=== PATIENT | male | born 1965 | race Caucasian/White ===

== ENCOUNTER 2020-10-04 21:23 | Inpatient (IN) ==
[2020-10-04 22:17] LABS: Appearance Urine Clear (Clear); Blood Urine 3+ (Negative); Color Urine Orange; Epithelial Cell Urine Auto >30 /lpf (0-5); Glucose Urine UA Negative (Negative); Ketones Urine Trace (Negative); Leukocyte Esterase Urine Trace (Negative); Nitrite Urine Positive (Negative); Protein Urine Trace (Negative); RBC Urine Automated >30 /hpf (0-4); Specific Gravity Urine 1.025 (1.000-1.030); Urobilinogen Urine Negative (Negative)
[2020-10-04 22:23] LABS: Bilirubin Urine 2+ (Negative)
[2020-10-04 22:29] LABS: Bacteria Urine Automated 1+ (Negative); Mucus Urine Present (None Prsent)
--- NOTE | 2020-10-04 22:33 | Emergency Department Note ---
Impression & Plan Altered mental status, Alcohol-induced hallucinations, Alcohol abuse, Psychosis, Thrombocytopenia, Urinary tract infection, Rhabdomyolysis ED Provider Note NAME: LUIS FELIPE WYNN AGE: 55 SEX: M : 1965 ARRIVES VIA: Walk-In INFORMANT: Patient, the patient's family member ED PROVIDER(S): Ron Gonzalez DO CHIEF COMPLAINT: Mental health evaluation HPI: The patient is a 55-year-old male who presented to the emergency department with his family member for an evaluation of mental health issues. The patient has had problems with paranoia. He is also had problems with sleeping recently. The patient does not have a previous mental health history. He does have a history of alcohol abuse in the past. He had a history of detox and at that time his family member states that he had hallucinations. Lately he has had significant mental health symptoms such as paranoia. He thinks that he has a tracker that was implanted in his left shoulder. He tried to remove this with a utility knife today. He came to the emergency department willingly although he thought he was being evaluated for the self-inflicted abrasion and not for his mental health issues. At this time the patient denies having any chest pain or difficulty breathing. He denies having any fever or cough. He has been experiencing GERD and reflux symptoms over the course the last few weeks. He states this is why he is not able to sleep and why he has had insomnia. He denies any con commitment drug use. ROS: See above HPI for pertinent positives & negatives. A total of 10 systems reviewed and were otherwise negative. PAST MEDICAL HISTORY: See Below PAST SURGICAL HISTORY: See Below FAMILY HISTORY: See Below SOCIAL HISTORY: See Below HOME MEDICATIONS: See Below ALLERGIES: See Below VITALS: See Below PHYSICAL EXAMINATION: GENERAL: The patient is awake and alert. He is somewhat anxious appearing and appears to be guarded. EYES: The conjunctivae are clear. The pupils are round and reactive. EARS, NOSE, MOUTH AND THROAT: The nose is without any evidence of any deformity. NECK: The neck is nontender and supple. RESPIRATORY: Normal respiratory effort is noted there is no evidence of wheezing rhonchi or rales CARDIOVASCULAR: Regular rate and rhythm noted there no murmurs rubs or gallops normal S1 normal S2. GASTROINTESTINAL: The abdomen is soft. Abdomen is nontender. MUSCULOSKELETAL/EXTREMITIES: There is no evidence of gross deformity full range of motion is noted in the hips and shoulders. SKIN: No pedal edema was noted. There is a brush burn-like abrasion to the left shoulder in the area where the patient remove the GPS tracking device. NEUROLOGIC: Patient is awake alert and oriented x3 strength is symmetric patellar reflexes are 2+ bilaterally PSYCH: The patient is awake and alert. The patient makes good eye contact. Patient's affect is animated. He is currently denying any suicidal homicidal ideation but is very paranoid and insists that he is being tracked with a GPS device. He also insisted he was seeing people in a tree outside of his window. MEDICAL DECISION MAKING: The patient is a 55-year-old male who presented to the emergency department with family member for an evaluation of hallucinations. The patient does have a history of alcohol abuse. The patient initially came in the emergency department with significant paranoid. He thought that he was being tracked with a GPS tracker that was implanted in his left arm. He is also been hallucinating and seeing people climbing a tree outside of his window. The patient was unable to be medically cleared in the emergency department. He was found to have multiple laboratory abnormalities including an elevated CPK, thrombocytopenia, abnormal liver function studies and abnormal vital signs. The patient was treated with IV fluids and IV antibiotics for presumed urinary tract infection. He was also treated with IV thiamine. I discussed the patient's laboratory and radiographic studies with him. I discussed his case with the on-call [facility] hospitalist. They have agreed to evaluate the patient in the emergency department for further management and disposition. Triage Nursing notes reviewed. Prior medical records reviewed Vital Signs: reviewed and remarkable for initial tachycardia. Differential diagnosis: Mood disorder, infection, hypoglycemia, electrolyte abnormalities, cardiac sources, intracerebral event, toxicologic, trauma, neurologic, as well as other pathologies. ER treatment provided: See below Diagnostics interpreted by me: ECG: EKG was obtained in the emergency department. My interpretation is sinus tachycardia at 160 bpm. There is no ectopy. There was no acute ST segment abnormalities noted. This was compared to a tracing from August 292010. No significant changes were noted. Laboratory studies: [As stated above and show below.] Imaging studies: [See below] Consultation(s): 0035: I discussed this case with Dr. Roth [facility]. Past Med/Surg History Medical History (Updated 10/05/20 @ 00:32 by Ron Gonzalez DO) Alcohol abuse History of pneumothorax Social History (Updated 10/05/20 @ 00:31 by Ron Gonzalez DO) Smoking Status: Never smoker Hx Alcohol Use: Yes Alcohol type: beer Alcohol Intake Frequency: 2-3 x/Week Feels Safe at Home: Yes Allergies Allergies Allergy/AdvReac Type Severity Reaction Status Date / Time No Known Allergies Allergy Verified 10/04/20 21:45 Home Meds Home Medications Medication Instructions Recorded Confirmed esomeprazole magnesium [Nexium] 20 mg PO DAILY PRN 10/04/20 10/04/20 fexofenadine-pseudoephedrine See Rx Instructions .ROUTE 10/04/20 10/04/20 [Zuleyma-D 12 Hour] .COMPLEX PRN Results & Data (ED) Vital Signs Vital Signs - 24 hr 10/04/20 21:29 10/04/20 22:53 10/05/20 00:28 Temperature 37.4 C Temperature Source Temporal Artery Scan Pulse Rate 128 H Pulse Rate [Finger] 112 H 105 H Respiratory Rate 18 18 18 Respiratory Effort / Characteristics Non-Labored Non-Labored Spontaneous Respiratory Depth Normal Normal Blood Pressure 133/90 Blood Pressure [Right Arm] 136/89 105/87 Blood Pressure Mean 104 Blood Pressure Mean [Right Arm] 104 93 Pulse Oximetry 95 98 97 Oxygen Delivery Method Room Air Room Air Room Air Sepsis Recent Fever Within 48 Hours No Sepsis New/Unexplained Change in Mental Status No Sepsis Action Taken by Nursing No Action Required Home Medications Current Medication List: was personally reviewed by me Laboratory Data Attestation: I reviewed the patient's lab results. Result diagrams: 10/04/20 22:09 10/04/20 22:09 Lab Results 10/04/20 10/04/20 10/04/20 Range/Units 21:40 21:40 22:09 WBC 5.89 (4.8-10.8) K/uL RBC 4.23 L (4.7-6.1) M/uL Hgb 14.7 (14.0-18.0) g/dL Hct 39.9 L (42-52) % MCV 94.3 (80-100) fL MCH 34.8 H (25-34) pg MCHC 36.8 H (32-36) g/dL RDW Std Deviation 44.4 (36.4-46.3) fL RDW Coeff of Kevin 12.8 (11.5-14.5) % Plt Count 36 L (130-400) K/uL MPV 11.2 H (7.4-10.4) fL Immature Gran % (Auto) 0.2 % Neut % (Auto) 51.5 % Lymph % (Auto) 30.4 % [place] % (Auto) 17.3 % Eos % (Auto) 0.3 % Baso % (Auto) 0.3 % Neut # (Auto) 3.03 (1.4-6.5) K/uL Lymph # (Auto) 1.79 (1.2-3.4) K/uL [place] # (Auto) 1.02 H (0.11-0.59) K/uL Eos # (Auto) 0.02 (0-0.5) K/uL Baso # (Auto) 0.02 (0-0.2) K/uL Immature Gran # (Auto) 0.01 (0.00-0.02) K/uL Platelet Estimate Decreased L (Normal) Sodium (136-145) mmol/L Potassium (3.5-5.1) mmol/L Chloride (98-107) mmol/L Carbon Dioxide (21-32) mmol/L Anion Gap (3-11) BUN (7-18) mg/dl Creatinine (0.6-1.4) mg/dl Est Cr Clr Drug Dosing ml/min Est GFR ( Amer) Est GFR (Non-Af Amer) BUN/Creatinine Ratio (10-20) Glucose (70-99) mg/dl Calcium (8.5-10.1) mg/dl Total Bilirubin (0.2-1) mg/dl Direct Bilirubin (0-0.2) mg/dl AST (15-37) U/L ALT (12-78) U/L Alkaline Phosphatase (45-117) U/L Total Creatine Kinase (39-308) U/L Troponin I (0-0.045) ng/ml Total Protein (6.4-8.2) gm/dl Albumin (3.4-5.0) gm/dl Globulin (2.5-4.0) gm/dl Albumin/Globulin Ratio (0.9-2) TSH (0.300-4.500) uIu/ml Urine Color [place] Urine Appearance Clear (Clear) Urine pH 6.0 (4.5-7.5) Ur Specific [place] 1.025 (1.000-1.030) Urine Protein Trace H (Negative) Urine Glucose (UA) Negative (Negative) Urine Ketones Trace H (Negative) Urine Blood 3+ H (Negative) Urine Nitrite Positive A (Negative) Urine Bilirubin 2+ H (Negative) Urine Urobilinogen Negative (Negative) Ur Leukocyte Esterase Trace H (Negative) Urine WBC (Auto) 5-10 H (0-5) /hpf Urine RBC (Auto) >30 H (0-4) /hpf U Hyaline Cast (Auto) 5-10 H (0-5) /lpf U Epithel Cells (Auto) >30 H (0-5) /lpf Urine Bacteria (Auto) 1+ H (Negative) Ur Renal Epithelial Cell Not Reportable Granular Casts 1-5 H (0) /lpf Urine Mucus Present A (None Prsent) Salicylates Urine Opiates Screen Neg (Neg) Ur Methadone, Qual Neg (Neg) Acetaminophen Urine Barbiturates Neg (Neg) Ur Phencyclidine (PCP) Neg (Neg) U Amphetamin/Meth Scrn Neg (Neg) MDMA (Ecstasy) Screen Pos H (Neg) U Benzodiazepines Scrn Neg (Neg) Ur Cocaine Metabolite Neg (Neg) U Marijuana (THC) Screen Pos H (Neg) Ethyl Alcohol mg/dL (0-3) mg/dl COVID-19 Eval Order SARS-CoV-2 (PCR) (Negative) Influenza Type A (PCR) (Neg) Influenza Type B (PCR) (Neg) RSV (RT-PCR) (Neg) 10/04/20 10/04/20 10/04/20 Range/Units 22:09 22:09 22:09 WBC (4.8-10.8) K/uL RBC (4.7-6.1) M/uL Hgb (14.0-18.0) g/dL Hct (42-52) % MCV (80-100) fL MCH (25-34) pg MCHC (32-36) g/dL RDW Std Deviation (36.4-46.3) fL RDW Coeff of Kevin (11.5-14.5) % Plt Count (130-400) K/uL MPV (7.4-10.4) fL Immature Gran % (Auto) % Neut % (Auto) % Lymph % (Auto) % [place] % (Auto) % Eos % (Auto) % Baso % (Auto) % Neut # (Auto) (1.4-6.5) K/uL Lymph # (Auto) (1.2-3.4) K/uL [place] # (Auto) (0.11-0.59) K/uL Eos # (Auto) (0-0.5) K/uL Baso # (Auto) (0-0.2) K/uL Immature Gran # (Auto) (0.00-0.02) K/uL Platelet Estimate (Normal) Sodium 133 L (136-145) mmol/L Potassium 3.4 L (3.5-5.1) mmol/L Chloride 98 (98-107) mmol/L Carbon Dioxide 25 (21-32) mmol/L Anion Gap 9.0 (3-11) BUN 13 (7-18) mg/dl Creatinine 0.80 (0.6-1.4) mg/dl Est Cr Clr Drug Dosing 103.9 ml/min Est GFR ( Amer) 118.2 Est GFR (Non-Af Amer) 102.0 BUN/Creatinine Ratio 16.7 (10-20) Glucose 105 H (70-99) mg/dl Calcium 9.6 (8.5-10.1) mg/dl Total Bilirubin 5.9 H (0.2-1) mg/dl Direct Bilirubin 2.6 H (0-0.2) mg/dl AST 218 H (15-37) U/L ALT 94 H (12-78) U/L Alkaline Phosphatase 141 H (45-117) U/L Total Creatine Kinase 2058 H (39-308) U/L Troponin I 0.029 (0-0.045) ng/ml Total Protein 7.9 (6.4-8.2) gm/dl Albumin 3.3 L (3.4-5.0) gm/dl Globulin 4.6 H (2.5-4.0) gm/dl Albumin/Globulin Ratio 0.7 L (0.9-2) TSH 3.080 (0.300-4.500) uIu/ml Urine Color Urine Appearance (Clear) Urine pH (4.5-7.5) Ur Specific [place] (1.000-1.030) Urine Protein (Negative) Urine Glucose (UA) (Negative) Urine Ketones (Negative) Urine Blood (Negative) Urine Nitrite (Negative) Urine Bilirubin (Negative) Urine Urobilinogen (Negative) Ur Leukocyte Esterase (Negative) Urine WBC (Auto) (0-5) /hpf Urine RBC (Auto) (0-4) /hpf U Hyaline Cast (Auto) (0-5) /lpf U Epithel Cells (Auto) (0-5) /lpf Urine Bacteria (Auto) (Negative) Ur Renal Epithelial Cell Granular Casts (0) /lpf Urine Mucus (None Prsent) Salicylates Cancelled Urine Opiates Screen (Neg) Ur Methadone, Qual (Neg) Acetaminophen Cancelled Urine Barbiturates (Neg) Ur Phencyclidine (PCP) (Neg) U Amphetamin/Meth Scrn (Neg) MDMA (Ecstasy) Screen (Neg) U Benzodiazepines Scrn (Neg) Ur Cocaine Metabolite (Neg) U Marijuana (THC) Screen (Neg) Ethyl Alcohol mg/dL 90.0 H (0-3) mg/dl COVID-19 Eval Order SARS-CoV-2 (PCR) (Negative) Influenza Type A (PCR) (Neg) Influenza Type B (PCR) (Neg) RSV (RT-PCR) (Neg) 10/04/20 10/04/20 Range/Units 22:34 22:34 WBC (4.8-10.8) K/uL RBC (4.7-6.1) M/uL Hgb (14.0-18.0) g/dL Hct (42-52) % MCV (80-100) fL MCH (25-34) pg MCHC (32-36) g/dL RDW Std Deviation (36.4-46.3) fL RDW Coeff of Kevin (11.5-14.5) % Plt Count (130-400) K/uL MPV (7.4-10.4) fL Immature Gran % (Auto) % Neut % (Auto) % Lymph % (Auto) % [place] % (Auto) % Eos % (Auto) % Baso % (Auto) % Neut # (Auto) (1.4-6.5) K/uL Lymph # (Auto) (1.2-3.4) K/uL [place] # (Auto) (0.11-0.59) K/uL Eos # (Auto) (0-0.5) K/uL Baso # (Auto) (0-0.2) K/uL Immature Gran # (Auto) (0.00-0.02) K/uL Platelet Estimate (Normal) Sodium (136-145) mmol/L Potassium (3.5-5.1) mmol/L Chloride (98-107) mmol/L Carbon Dioxide (21-32) mmol/L Anion Gap (3-11) BUN (7-18) mg/dl Creatinine (0.6-1.4) mg/dl Est Cr Clr Drug Dosing ml/min Est GFR ( Amer) Est GFR (Non-Af Amer) BUN/Creatinine Ratio (10-20) Glucose (70-99) mg/dl Calcium (8.5-10.1) mg/dl Total Bilirubin (0.2-1) mg/dl Direct Bilirubin (0-0.2) mg/dl AST (15-37) U/L ALT (12-78) U/L Alkaline Phosphatase (45-117) U/L Total Creatine Kinase (39-308) U/L Troponin I (0-0.045) ng/ml Total Protein (6.4-8.2) gm/dl Albumin (3.4-5.0) gm/dl Globulin (2.5-4.0) gm/dl Albumin/Globulin Ratio (0.9-2) TSH (0.300-4.500) uIu/ml Urine Color Urine Appearance (Clear) Urine pH (4.5-7.5) Ur Specific [place] (1.000-1.030) Urine Protein (Negative) Urine Glucose (UA) (Negative) Urine Ketones (Negative) Urine Blood (Negative) Urine Nitrite (Negative) Urine Bilirubin (Negative) Urine Urobilinogen (Negative) Ur Leukocyte Esterase (Negative) Urine WBC (Auto) (0-5) /hpf Urine RBC (Auto) (0-4) /hpf U Hyaline Cast (Auto) (0-5) /lpf U Epithel Cells (Auto) (0-5) /lpf Urine Bacteria (Auto) (Negative) Ur Renal Epithelial Cell Granular Casts (0) /lpf Urine Mucus (None Prsent) Salicylates Urine Opiates Screen (Neg) Ur Methadone, Qual (Neg) Acetaminophen Urine Barbiturates (Neg) Ur Phencyclidine (PCP) (Neg) U Amphetamin/Meth Scrn (Neg) MDMA (Ecstasy) Screen (Neg) U Benzodiazepines Scrn (Neg) Ur Cocaine Metabolite (Neg) U Marijuana (THC) Screen (Neg) Ethyl Alcohol mg/dL (0-3) mg/dl COVID-19 Eval Order [facility]sv at [facility] SARS-CoV-2 (PCR) NEGATIVE (Negative) Influenza Type A (PCR) Negative (Neg) Influenza Type B (PCR) Negative (Neg) RSV (RT-PCR) Negative (Neg) Administered Medications Sodium Chloride (Nss 1000ml) 1,000 mls @ 80 mls/hr IV .[id number] Stop: 11/03/20 23:14 Last Infusion: 10/05/20 00:27 Dose: 0 mls/hr Documented by: [id number] Admin: 10/04/20 23:36 Dose: 1,000 mls/hr Documented by: [id number] Discontinued Medications Ceftriaxone Sodium (Rocephin) 1,000 mg in 50 mls @ 100 mls/hr IV NOW STA Stop: 10/04/20 23:36 Last Infusion: 10/05/20 00:06 Dose: 0 mls/hr Documented by: [id number] Admin: 10/04/20 23:36 Dose: 100 mls/hr Documented by: [id number] Imaging Data Attestation: I personally reviewed and interpreted this imaging study as follows: My Impression: 1 view chest x-ray was obtained in the emergency department. My interpretation is hyperinflation, heart size is normal, there was no free air, there is no definite infiltrate appreciated. Radiologist's Impression: Patient: LUIS FELIPE WYNN (Male) : 69 Status: ER Date: 10/05/20 00:01 Room #: History: AMS Slices: 66 Priors: Tech: Jonel Montiel @ [phone] Exams: CT HEAD Contrast: Accession Numbers: [id number] Preliminary Findings Only See Final Report For Complete Findings CT HEAD: No acute intracranial hemorrhage, hydrocephalus, edema, mass effect, or acute cortical infarct. Paranasal sinuses and mastoid air cells are clear. No fracture. Radiologist: Arcadio Schulz MD Study ready at 00:04 and initial results transmitted at 00:18 Discharge Plan Visit Data Chief Complaint: Mental Health Evaluation Stated Complaint: MENTAL HEALTH EVAL ED Provider: Ron Gonzalez Discharge Problem: Altered mental status, Alcohol-induced hallucinations, Alcohol abuse, Psychosis, Thrombocytopenia, Urinary tract infection, Rhabdomyolysis Patient Disposition: Being Evaluated by Hospitalist Condition: Good Forms Stand Alone Forms: [facility], Suicide Prevention Resources, Virtual Emergency Department, Important Visit Information Prescriptions Prescriptions: No Action fexofenadine-pseudoephedrine [Zuleyma-D 12 Hour] 60-120 mg Tablet Extended Release 12 Hr See Rx Instructions .ROUTE .COMPLEX PRN (Reason: Allergy Symptoms) RF: 0 esomeprazole magnesium [Nexium] 20 mg Capsule,Delayed Release(Dr/Ec) 20 mg PO DAILY PRN (Reason: Abdominal Discomfort) RF: 0 Referrals Referrals: PCP,NO [Primary Care Provider] - Discharge Problem: Altered mental status Qualifiers: Altered mental status type: unspecified Qualified Code(s): R41.82 - Altered mental status, unspecified Psychosis Qualifiers: Psychosis type: unspecified psychosis type Qualified Code(s): F29 - Unspecified psychosis not due to a substance or known physiological condition Urinary tract infection Qualifiers: Urinary tract infection type: site unspecified Hematuria presence: with hematuria Qualified Code(s): N39.0 - Urinary tract infection, site not specified Rhabdomyolysis Qualifiers: Rhabdomyolysis type: non-traumatic Qualified Code(s): M62.82 - Rhabdomyolysis
[2020-10-04 22:50] LABS: Albumin Level 3.3 gm/dl (3.4-5.0); BUN Creatinine Ratio 16.7 (10-20); Calcium 9.6 mg/dl (8.5-10.1); Creatinine Clr Calc Pharmacy 103.9 ml/min; Est GFR (African American) 118.2; Potassium 3.4 mmol/L (3.5-5.1)
[2020-10-04 22:55] LABS: Albumin Globulin Ratio 0.7 (0.9-2); Bilirubin,Total 5.9 mg/dl (0.2-1); Globulin 4.6 gm/dl (2.5-4.0); Total Protein 7.9 gm/dl (6.4-8.2)
[2020-10-04 22:59] LABS: Amphetamines+Metham, Urine Neg (Neg); Barbiturates, Urine Neg (Neg); Benzodiazepine, Urine Neg (Neg); Cocaine, Urine Neg (Neg); MDMA (Ecstacy), Urine Pos (Neg); Methadone, Urine Neg (Neg); Opiate, Urine Neg (Neg); Phencyclidine, Urine Neg (Neg)
[2020-10-04] MEDS ORDERED: cefTRIAXone SODIUM 1,000 MG/50 ML BAG IV STA (23:07)
[2020-10-04 23:15] LABS: Thyroid Stimulating Hormone 3.08 uIu/ml (0.300-4.500); Troponin I 0.029 ng/ml (0-0.045)
[2020-10-04] MEDS ORDERED: SODIUM CHLORIDE 0.9% 1000ML 1,000 ML IV SCH (23:15)
[2020-10-04 23:25] LABS: Influenza A virus by PCR Negative (Neg); Influenza B virus by PCR Negative (Neg); RSV by PCR Negative (Neg); SARS CoV2 RNA(COVID-19) InHosp NEGATIVE (Negative)
[2020-10-04 23:34] LABS: Hematocrit (blood only) 39.9 % (42-52); Hemoglobin 14.7 g/dL (14.0-18.0); Mean Corpuscular Hemoglobin 34.8 pg (25-34); Mean Corpuscular Hgb Conc 36.8 g/dL (32-36); Mean Corpuscular Volume 94.3 fL (80-100); Mean Platelet Volume 11.2 fL (7.4-10.4); Platelet Count 36 K/uL (130-400); RDW Coefficient of Variation 12.8 % (11.5-14.5); RDW Standard Deviation 44.4 fL (36.4-46.3); Red Blood Count 4.23 M/uL (4.7-6.1); White Blood Count 5.89 K/uL (4.8-10.8)
[2020-10-04 23:35] LABS: Basophils # (auto) 0.02 K/uL (0-0.2); Basophils % (auto) 0.3 %; Eosinophils # (auto) 0.02 K/uL (0-0.5); Eosinophils % (auto) 0.3 %; Immature Granulocytes # (auto) 0.01 K/uL (0.00-0.02); Immature Granulocytes % (auto) 0.2 %; Lymphocytes # (auto) 1.79 K/uL (1.2-3.4); Lymphocytes % (auto) 30.4 %; Monocytes # (auto) 1.02 K/uL (0.11-0.59); Monocytes % (auto) 17.3 %; Neutrophils # (auto) 3.03 K/uL (1.4-6.5); Neutrophils % (auto) 51.5 %; Platelet Estimate Decreased (Normal)
[2020-10-05] MEDS ORDERED: THIAMINE HCL 100 MG in SYRINGE 9 ML IV STA (00:32)
[2020-10-05 00:36] LABS: Bilirubin Direct 2.6 mg/dl (0-0.2)
[2020-10-05 00:51] LABS: INR 1.5 (0.9-1.1); Partial Thromboplastin Ratio 1.2; Partial Thromboplastin Time 30.9 Seconds (21.0-31.0); Prothrombin Time 15.1 Seconds (9.0-12.0)
--- NOTE | 2020-10-05 01:56 | History & Physical Report ---
Date of Service October 05, 2020 Assessment & Plan (1) Altered mental status: Patient AA&O to person and location. He answers questions appropriately and follows commands. He denies AH/VH, denies SI/HI. 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 Patient attempted to remove microchip today. No prior hisory of mental illness. ?EtOH withdrawal as underlying cause. Patient also with UTI, ?encephalopathy. Mild hyponatremia, electrolytes otherwise WNL. TSH WNL. CT Head unremarkable -Admit to PCU -Frequent orientation -Treatment of EtOH withdrawal and UTI -Check ammonia Present on Admission?: Yes (2) Rhabdomyolysis: Elevated CPK, renal function intact -IVF - NSS at 100mL/hr x 1 liter -Repeat CK in AM 10/06/20 Present on Admission?: Yes (3) Alcohol abuse: Patient has had several hospital visits for EtOH withdrawal. He has had confusion and hallucinations in the past in setting of EtOH withdrawal. He was evaluated by Psychiatry during a prior hospitalization in 2010. Addiction counseling offered and refused. He reports only drinking beer 2-3 times per week. Reports his last drink was appx 1 week ago. Although patient's EtOH level elevated today at 90 which makes this unlikely -Valium 5mg po x 1 now -Banana bag -AWSS with IV Ativan per protocol -Thiamine 100mg po daily -Folate 1mg po daily -Psychiatry consultation appreciated Present on Admission?: Yes (4) Urinary tract infection: Patient with positive UA. No urinary complaints -Ceftriaxone 1gm IV daily -Follow cultures Present on Admission?: Yes (5) Liver dysfunction: Patient was evaluated by GI in 2010 for evaluation of elevated liver enzymes. ELOISA, AMA, ASMA, S-pep, TTG, IgA, ceruloplasmin (normal at 29), TSH (normal at 2.05), Ferritin (elevated at 929), TIBC (normal at 328), Monospot (Positive), CMV (+IgG) and hepatitis panel were sent. During that hospitalization he had elevation of AST and ALT as well as mild elevation of Tbili. Coag panel seemed to remain within normal range. Today patient with elevated AST, ALT as well as AP, Tbili and Dbili. INR mildly elevated at 1.5 as well as PT of 15. Thrombocytopenia and low albumin raise concern for synthetic dysfunction -Check liver US with doppler -Check Acetaminophen level (patient denies using), Ferritin, Acute hepatitis panel, Ammonia -Repeat LFTs in AM -Patient is still an active drinker F/E/N - NSS at 100mL/hr x 1 liter, monitor electroltyes, Regular diet as tolerated Code - Full History of Present Illness Chief Complaint: EtOH withdrawal Primary Care Provider: NO PCP Guy Amin is a 55yo male with history of chronic EtOH use presenting with concern for mental health issues. Patient presented to the ER with his mother. He is unable to fully recount the events preceding arrival. History obtained through discussion with ER staff as well as chart review. Patient has had problems with paranoia and sleeping recently. He thinks that he has several microchip trackers that have been implanted in his left arm. Today he used a stainless steel utility knife to extract one of the trackers from his arm. He denies previous history of mental illness. He is not on any medication for mental illness. Patient complains only of increased heartburn symptoms. He denies chest pain, SOB, palpitations, abdominal pain, nausea, vomiting, diarrhea or constipation. He denies edema, bloating, dark urine, cecily colored stools or yellowing of the skin or eyes. He does admit to easy bruising over the past month. Otherwise no complaints. In the ER patient afebrile, tachycardic and mildly hypertensive. Patient reports that he has been cutting back on his drinking over the past several months. States he drinks several beers 3 times weekly. Last drink reportedly one week ago. He has had withdrawal symptoms in the past including hallucinations. He admits to smoking marijuana occasionally but otherwise denies substance use. ER Course: Ceftriaxone 1gm, NSS x 1L at 80mL/hr, Thiamine 100mg IV Allergies Allergy/AdvReac Type Severity Reaction Status Date / Time No Known Allergies Allergy Verified 10/04/20 21:45 Home Medications Medication Instructions Recorded Confirmed Type esomeprazole magnesium [Nexium] 20 mg PO DAILY PRN 10/04/20 10/04/20 History fexofenadine-pseudoephedrine See Rx Instructions .ROUTE 10/04/20 10/04/20 History [Zuleyma-D 12 Hour] .COMPLEX PRN Past Med/Surg History Medical History Alcohol abuse History of pneumothorax Family History (Updated 10/05/20 @ 02:08 by Amy Roth DO) Other No significant past surgical history Social History Smoking Status: Never smoker Hx Alcohol Use: Yes Alcohol type: beer Alcohol Intake Frequency: 2-3 x/Week Feels Safe at Home: Yes Review of Systems Review of Systems: All systems reviewed & are unremarkable except as noted in HPI & below Physical Exam Physical Exam: General: patient resting mildly tremulous, NAD, non-toxic in appearance, AA&O to person and location, some confusion to date Skin: warm, dry, LUE with dressing in place, c/d/i, +Jaundice and scleral icterus, +bruising on forearm and right hand HEENT: NC/AT, PERRL, EOMI, mild scleral icterus, conjunctiva without injection, external ear normal to inspection and nontender, nares patent, moist mucus membranes, dentition intact, no oropharyngeal lesions, neck supple, trachea midline, no LAD, no thyromegaly, no JVD Heart: +S1/S2, regular, no m/r/g Lungs: equal air entry bilaterally, no rales/rhonchi/wheezes Abd: +BS, soft, NT/ND, no masses/organomegaly/ascites, lilver percussed at appx 7cm mid-clavicular line, nontender Ext: warm, 2+ pulses in UE/LE bilaterally, no clubbing/cyanosis or edema Neuro: nonfocal, patient AA&O x 2, speech intact, no facial droop, moving all extremities on command with equal strength 5/5, mildly tremulous, while observing patient on monitor he seems to be responding to internal stimuli on occasion - reaching for things in the air Results & Data Results & Data ([facility]) Vital Signs (Past 12 Hours) Vital Signs Temp Pulse Pulse Resp BP BP Pulse Ox 10/05/20 00:28 105 H 18 105/87 97 10/04/20 22:53 112 H 18 136/89 98 10/04/20 21:29 37.4 C 128 H 18 133/90 95 Laboratory Results Lab Results 10/04/20 10/04/20 10/04/20 Range/Units 21:40 21:40 22:09 WBC 5.89 (4.8-10.8) K/uL RBC 4.23 L (4.7-6.1) M/uL Hgb 14.7 (14.0-18.0) g/dL Hct 39.9 L (42-52) % MCV 94.3 (80-100) fL MCH 34.8 H (25-34) pg MCHC 36.8 H (32-36) g/dL RDW Std Deviation 44.4 (36.4-46.3) fL RDW Coeff of Kevin 12.8 (11.5-14.5) % Plt Count 36 L (130-400) K/uL MPV 11.2 H (7.4-10.4) fL Immature Gran % (Auto) 0.2 % Neut % (Auto) 51.5 % Lymph % (Auto) 30.4 % [place] % (Auto) 17.3 % Eos % (Auto) 0.3 % Baso % (Auto) 0.3 % Neut # (Auto) 3.03 (1.4-6.5) K/uL Lymph # (Auto) 1.79 (1.2-3.4) K/uL [place] # (Auto) 1.02 H (0.11-0.59) K/uL Eos # (Auto) 0.02 (0-0.5) K/uL Baso # (Auto) 0.02 (0-0.2) K/uL Immature Gran # (Auto) 0.01 (0.00-0.02) K/uL Platelet Estimate Decreased L (Normal) PT (9.0-12.0) Seconds INR (0.9-1.1) APTT (21.0-31.0) Seconds PTT Ratio Sodium (136-145) mmol/L Potassium (3.5-5.1) mmol/L Chloride (98-107) mmol/L Carbon Dioxide (21-32) mmol/L Anion Gap (3-11) BUN (7-18) mg/dl Creatinine (0.6-1.4) mg/dl Est Cr Clr Drug Dosing ml/min Est GFR ( Amer) Est GFR (Non-Af Amer) BUN/Creatinine Ratio (10-20) Glucose (70-99) mg/dl Calcium (8.5-10.1) mg/dl Total Bilirubin (0.2-1) mg/dl Direct Bilirubin (0-0.2) mg/dl AST (15-37) U/L ALT (12-78) U/L Alkaline Phosphatase (45-117) U/L Total Creatine Kinase (39-308) U/L Troponin I (0-0.045) ng/ml Total Protein (6.4-8.2) gm/dl Albumin (3.4-5.0) gm/dl Globulin (2.5-4.0) gm/dl Albumin/Globulin Ratio (0.9-2) TSH (0.300-4.500) uIu/ml Urine Color [place] Urine Appearance Clear (Clear) Urine pH 6.0 (4.5-7.5) Ur Specific [place] 1.025 (1.000-1.030) Urine Protein Trace H (Negative) Urine Glucose (UA) Negative (Negative) Urine Ketones Trace H (Negative) Urine Blood 3+ H (Negative) Urine Nitrite Positive A (Negative) Urine Bilirubin 2+ H (Negative) Urine Urobilinogen Negative (Negative) Ur Leukocyte Esterase Trace H (Negative) Urine WBC (Auto) 5-10 H (0-5) /hpf Urine RBC (Auto) >30 H (0-4) /hpf U Hyaline Cast (Auto) 5-10 H (0-5) /lpf U Epithel Cells (Auto) >30 H (0-5) /lpf Urine Bacteria (Auto) 1+ H (Negative) Ur Renal Epithelial Cell Not Reportable Granular Casts 1-5 H (0) /lpf Urine Mucus Present A (None Prsent) Salicylates Urine Opiates Screen Neg (Neg) Ur Methadone, Qual Neg (Neg) Acetaminophen Urine Barbiturates Neg (Neg) Ur Phencyclidine (PCP) Neg (Neg) U Amphetamin/Meth Scrn Neg (Neg) MDMA (Ecstasy) Screen Pos H (Neg) U Benzodiazepines Scrn Neg (Neg) Ur Cocaine Metabolite Neg (Neg) U Marijuana (THC) Screen Pos H (Neg) Ethyl Alcohol mg/dL (0-3) mg/dl COVID-19 Eval Order SARS-CoV-2 (PCR) (Negative) Influenza Type A (PCR) (Neg) Influenza Type B (PCR) (Neg) RSV (RT-PCR) (Neg) 03/10/04/20 10/04/20 Range/Units 22:09 22:09 22:09 WBC (4.8-10.8) K/uL RBC (4.7-6.1) M/uL Hgb (14.0-18.0) g/dL Hct (42-52) % MCV (80-100) fL MCH (25-34) pg MCHC (32-36) g/dL RDW Std Deviation (36.4-46.3) fL RDW Coeff of Kevin (11.5-14.5) % Plt Count (130-400) K/uL MPV (7.4-10.4) fL Immature Gran % (Auto) % Neut % (Auto) % Lymph % (Auto) % [place] % (Auto) % Eos % (Auto) % Baso % (Auto) % Neut # (Auto) (1.4-6.5) K/uL Lymph # (Auto) (1.2-3.4) K/uL [place] # (Auto) (0.11-0.59) K/uL Eos # (Auto) (0-0.5) K/uL Baso # (Auto) (0-0.2) K/uL Immature Gran # (Auto) (0.00-0.02) K/uL Platelet Estimate (Normal) PT (9.0-12.0) Seconds INR (0.9-1.1) APTT (21.0-31.0) Seconds PTT Ratio Sodium 133 L (136-145) mmol/L Potassium 3.4 L (3.5-5.1) mmol/L Chloride 98 (98-107) mmol/L Carbon Dioxide 25 (21-32) mmol/L Anion Gap 9.0 (3-11) BUN 13 (7-18) mg/dl Creatinine 0.80 (0.6-1.4) mg/dl Est Cr Clr Drug Dosing 103.9 ml/min Est GFR ( Amer) 118.2 Est GFR (Non-Af Amer) 102.0 BUN/Creatinine Ratio 16.7 (10-20) Glucose 105 H (70-99) mg/dl Calcium 9.6 (8.5-10.1) mg/dl Total Bilirubin 5.9 H (0.2-1) mg/dl Direct Bilirubin 2.6 H (0-0.2) mg/dl AST 218 H (15-37) U/L ALT 94 H (12-78) U/L Alkaline Phosphatase 141 H (45-117) U/L Total Creatine Kinase 2058 H (39-308) U/L Troponin I 0.029 (0-0.045) ng/ml Total Protein 7.9 (6.4-8.2) gm/dl Albumin 3.3 L (3.4-5.0) gm/dl Globulin 4.6 H (2.5-4.0) gm/dl Albumin/Globulin Ratio 0.7 L (0.9-2) TSH 3.080 (0.300-4.500) uIu/ml Urine Color Urine Appearance (Clear) Urine pH (4.5-7.5) Ur Specific [place] (1.000-1.030) Urine Protein (Negative) Urine Glucose (UA) (Negative) Urine Ketones (Negative) Urine Blood (Negative) Urine Nitrite (Negative) Urine Bilirubin (Negative) Urine Urobilinogen (Negative) Ur Leukocyte Esterase (Negative) Urine WBC (Auto) (0-5) /hpf Urine RBC (Auto) (0-4) /hpf U Hyaline Cast (Auto) (0-5) /lpf U Epithel Cells (Auto) (0-5) /lpf Urine Bacteria (Auto) (Negative) Ur Renal Epithelial Cell Granular Casts (0) /lpf Urine Mucus (None Prsent) Salicylates Cancelled Urine Opiates Screen (Neg) Ur Methadone, Qual (Neg) Acetaminophen Cancelled Urine Barbiturates (Neg) Ur Phencyclidine (PCP) (Neg) U Amphetamin/Meth Scrn (Neg) MDMA (Ecstasy) Screen (Neg) U Benzodiazepines Scrn (Neg) Ur Cocaine Metabolite (Neg) U Marijuana (THC) Screen (Neg) Ethyl Alcohol mg/dL 90.0 H (0-3) mg/dl COVID-19 Eval Order SARS-CoV-2 (PCR) (Negative) Influenza Type A (PCR) (Neg) Influenza Type B (PCR) (Neg) RSV (RT-PCR) (Neg) 10/04/20 10/04/20 10/04/20 Range/Units 22:14 22:34 22:34 WBC (4.8-10.8) K/uL RBC (4.7-6.1) M/uL Hgb (14.0-18.0) g/dL Hct (42-52) % MCV (80-100) fL MCH (25-34) pg MCHC (32-36) g/dL RDW Std Deviation (36.4-46.3) fL RDW Coeff of Kevin (11.5-14.5) % Plt Count (130-400) K/uL MPV (7.4-10.4) fL Immature Gran % (Auto) % Neut % (Auto) % Lymph % (Auto) % [place] % (Auto) % Eos % (Auto) % Baso % (Auto) % Neut # (Auto) (1.4-6.5) K/uL Lymph # (Auto) (1.2-3.4) K/uL [place] # (Auto) (0.11-0.59) K/uL Eos # (Auto) (0-0.5) K/uL Baso # (Auto) (0-0.2) K/uL Immature Gran # (Auto) (0.00-0.02) K/uL Platelet Estimate (Normal) PT 15.1 H (9.0-12.0) Seconds INR 1.5 H (0.9-1.1) APTT 30.9 (21.0-31.0) Seconds PTT Ratio 1.2 Sodium (136-145) mmol/L Potassium (3.5-5.1) mmol/L Chloride (98-107) mmol/L Carbon Dioxide (21-32) mmol/L Anion Gap (3-11) BUN (7-18) mg/dl Creatinine (0.6-1.4) mg/dl Est Cr Clr Drug Dosing ml/min Est GFR ( Amer) Est GFR (Non-Af Amer) BUN/Creatinine Ratio (10-20) Glucose (70-99) mg/dl Calcium (8.5-10.1) mg/dl Total Bilirubin (0.2-1) mg/dl Direct Bilirubin (0-0.2) mg/dl AST (15-37) U/L ALT (12-78) U/L Alkaline Phosphatase (45-117) U/L Total Creatine Kinase (39-308) U/L Troponin I (0-0.045) ng/ml Total Protein (6.4-8.2) gm/dl Albumin (3.4-5.0) gm/dl Globulin (2.5-4.0) gm/dl Albumin/Globulin Ratio (0.9-2) TSH (0.300-4.500) uIu/ml Urine Color Urine Appearance (Clear) Urine pH (4.5-7.5) Ur Specific [place] (1.000-1.030) Urine Protein (Negative) Urine Glucose (UA) (Negative) Urine Ketones (Negative) Urine Blood (Negative) Urine Nitrite (Negative) Urine Bilirubin (Negative) Urine Urobilinogen (Negative) Ur Leukocyte Esterase (Negative) Urine WBC (Auto) (0-5) /hpf Urine RBC (Auto) (0-4) /hpf U Hyaline Cast (Auto) (0-5) /lpf U Epithel Cells (Auto) (0-5) /lpf Urine Bacteria (Auto) (Negative) Ur Renal Epithelial Cell Granular Casts (0) /lpf Urine Mucus (None Prsent) Salicylates Urine Opiates Screen (Neg) Ur Methadone, Qual (Neg) Acetaminophen Urine Barbiturates (Neg) Ur Phencyclidine (PCP) (Neg) U Amphetamin/Meth Scrn (Neg) MDMA (Ecstasy) Screen (Neg) U Benzodiazepines Scrn (Neg) Ur Cocaine Metabolite (Neg) U Marijuana (THC) Screen (Neg) Ethyl Alcohol mg/dL (0-3) mg/dl COVID-19 Eval Order [facility] at [facility] SARS-CoV-2 (PCR) NEGATIVE (Negative) Influenza Type A (PCR) Negative (Neg) Influenza Type B (PCR) Negative (Neg) RSV (RT-PCR) Negative (Neg) Diagnostic Findings CXR - by my interpretation - mildly hyperinflated, no acute process CT Head - per STAT-rad: No acute intracranial hemorrhage, hydrocephalus, edema, mass effect or acute cortical infarct. paranasal sinus and mastoid air cells are clear. No fracture ECG Additional Comments: EKG wtih ST at 116, no acute ischemic changes PG Care Time/CCT Total # of Minutes Spent Total Time Spent with Patient: Total time spent is greater than 50% in coordination of care (as documented) at patient's floor/unit and/or counseling patient: Coding Level of Care Code 10845 Initial Inpt Care Lvl 3 Diagnoses Altered mental status R41.82 Altered mental status type: unspecified Rhabdomyolysis M62.82 Rhabdomyolysis type: non-traumatic Alcohol abuse F10.10 Urinary tract infection N39.0; R31.9 Hematuria presence: with hematuria Urinary tract infection type: site unspecified Liver dysfunction K76.89 (1) Urinary tract infection Hematuria presence: with hematuria Urinary tract infection type: site unspecified Qualified Code(s): N39.0 - Urinary tract infection, site not specified; R31.9 - Hematuria, unspecified (2) Rhabdomyolysis Rhabdomyolysis type: non-traumatic Qualified Code(s): M62.82 - Rhabdomyolysis (3) Altered mental status Altered mental status type: unspecified Qualified Code(s): R41.82 - Altered mental status, unspecified
[2020-10-05] MEDS ORDERED: MULTI-VITAMIN INFUSION 10 ML, THIAMINE HCL 100 MG, FOLIC ACID 1 MG in SODIUM CHLORIDE 0... IV ONE (03:24)
[2020-10-05] MEDS ORDERED: POTASSIUM CHLORIDE CRTAB 20 MEQ TABCR PO STA (03:24)
[2020-10-05] MEDS ORDERED: diazePAM 5 MG TABLET PO ONE (03:24)
[2020-10-05] MEDS ORDERED: ATIVAN IV ALCOHOL WITHDRAWL IV PRN (03:24)
[2020-10-05] MEDS ORDERED: LORazepam 1 MG/2 ML VIAL IV PRN (03:24)
[2020-10-05] MEDS: SODIUM CHLORIDE 0.9% 1000ML 1,000 ML IV SCH ×2 (03:52→13:18)
[2020-10-05 04:30] LABS: Ferritin 1273.1 ng/ml (8-388); Magnesium 1.5 mg/dl (1.8-2.4); Phosphorus 3.5 mg/dl (2.5-4.9)
[2020-10-05] MEDS: LORazepam 2 MG/4 ML VIAL IV PRN ×2 (04:38→12:25)
[2020-10-05 05:07] LABS: Folate (Folic Acid) 8.3 ng/ml (>5.38)
--- NOTE | 2020-10-05 07:16 | CT Scan Report ---
CT SCAN OF THE BRAIN WITHOUT IV CONTRAST CLINICAL HISTORY: Change in mental status. COMPARISON STUDY: CT of the brain dated 07/07/2012. TECHNIQUE: Unenhanced axial CT scan of the brain is performed from the vertex to the skull base. A do se lowering technique was utilized adhering to the principles of ALARA. CT DOSE: 614.27 mGy.cm FINDINGS: Brain parenchyma: There is minimal microangiopathic change. There is no hemorrhage, mass effect, or e vidence of acute territorial ischemia by CT criteria. Howe-white matter differentiation is preserved. No extra-axial fluid collection is seen. Ventricles, sulci, cisterns: Normal in configuration. Intracranial vasculature: There is atherosclerotic calcification of the cavernous carotid arteries. Calvarium: Unremarkable. Sinuses and mastoids: The visualized paranasal sinuses are clear. The mastoid air cells are well pneu matized. Orbits: The bony orbits are grossly intact. IMPRESSION: There is no hemorrhage, mass effect, or evidence of acute territorial ischemia by CT cullen hartman. ACT 112: Negative or not required by law. Electronically signed by: Hay Flanagan M.D. 10/05/2020 7:15 AM
[2020-10-05] MEDS: LORazepam 3 MG/6 ML VIAL IV PRN ×2 (07:21→07:53)
--- NOTE | 2020-10-05 08:07 | Ultrasound Report ---
US liver, US duplex portal hepatic veins HISTORY: 55 years-old Male abnornal LFTs acutely elevated LFTs COMPARISON: Abdominal ultrasound 09/04/2010 TECHNIQUE: Multiple real-time sonographic images of the abdominal right upper quadrant were obtained assessing grayscale appearance and color flow. Additional duplex study of the hepatic vasculature was obtained assessing grayscale appearance, color and spectral flow FINDINGS: RIGHT UPPER QUADRANT ULTRASOUND: Pancreas is partially obscured by bowel gas with the imaged portions appearing unremarkable. Liver is heterogeneous with mild marginal nodularity. No hepatic mass or intrahepatic biliary ductal dilation . No ascites. Echogenic layering debris within the gallbladder without posterior acoustic shadowing i s suggestive of sludge. The gallbladder wall measures the upper limits of normal at 3 mm. No perichol ecystic fluid. Negative sonographic Farris's sign. Normal common bile duct, 3 mm. Unremarkable right kidney without hydronephrosis. DUPLEX STUDY: Hepatopedal flow within the portal vein. Patent hepatic and splenic veins with questioned to and fro waveforms of the splenic vein. Patent IVC. Patent hepatic artery. IMPRESSION: 1. Echogenic morphology of the hepatic parenchyma with marginal nodularity suggestive of cirrhosis. N o ascites. 2. Layering gallbladder sludge. No sonographic evidence of acute cholecystitis. 3. No biliary ductal dilation. 4. Hepatopedal flow within the portal vein. ACT 112: Negative or not required by law. The above report was generated using voice recognition software. It may contain grammatical, syntax o r spelling errors. Electronically signed by: Diogenes Lewis M.D. 10/05/2020 8:06 AM
[2020-10-05] MEDS: THIAMINE HCL 100 MG in SYRINGE 9 ML IV SCH (08:22)
[2020-10-05] MEDS: FOLIC ACID 1 MG in SYRINGE 9.8 ML IV SCH (08:22)
--- NOTE | 2020-10-05 08:40 | XRay Report ---
SINGLE VIEW CHEST CLINICAL HISTORY: Preadmission testing. FINDINGS: 2 AP, portable, upright chest radiographs are obtained. No prior studies are available for comparison at the time of dictation. The cardiomediastinal silhouette is unremarkable. The lungs and pleural spaces are clear. No pneumothorax is seen. The bony thorax is grossly intact. IMPRESSION: No active disease in the chest. ACT 112: Negative or not required by law. Electronically signed by: Hay Flanagan M.D. 10/05/2020 8:39 AM
[2020-10-05 08:47] LABS: Hematocrit (blood only) 35.7 % (42-52); Hemoglobin 12.9 g/dL (14.0-18.0); Mean Corpuscular Hemoglobin 34.6 pg (25-34); Mean Corpuscular Hgb Conc 36.1 g/dL (32-36); Mean Corpuscular Volume 95.7 fL (80-100); Platelet Count 23 K/uL (130-400); RDW Coefficient of Variation 13.1 % (11.5-14.5); RDW Standard Deviation 45.9 fL (36.4-46.3); Red Blood Count 3.73 M/uL (4.7-6.1); White Blood Count 4.15 K/uL (4.8-10.8)
[2020-10-05 08:58] LABS: Albumin Globulin Ratio 0.7 (0.9-2); Albumin Level 2.9 gm/dl (3.4-5.0); BUN Creatinine Ratio 16.9 (10-20); Bilirubin,Total 5.2 mg/dl (0.2-1); Calcium 8.4 mg/dl (8.5-10.1); Creatinine Clr Calc Pharmacy 161.3 ml/min; Est GFR (African American) 141.1; Est GFR (Non-African American) 121.7; Potassium 3.4 mmol/L (3.5-5.1); Total Protein 6.9 gm/dl (6.4-8.2)
[2020-10-05 09:33] LABS: Basophils # (auto) 0.01 K/uL (0-0.2); Basophils % (auto) 0.2 %; Eosinophils # (auto) 0.03 K/uL (0-0.5); Eosinophils % (auto) 0.7 %; Lymphocytes % (auto) 36.1 %; Monocytes # (auto) 0.55 K/uL (0.11-0.59); Monocytes % (auto) 13.3 %; Neutrophils # (auto) 2.06 K/uL (1.4-6.5); Neutrophils % (auto) 49.7 %
[2020-10-05 10:08] LABS: Hepatitis B Surf Ag Rflx Conf Neg (Neg)
--- NOTE | 2020-10-05 10:49 | Electrocardiogram Report ---
Test Reason : Blood Pressure : / mmHG Vent. Rate : 116 BPM Atrial Rate : 116 BPM P-R Int : 148 ms QRS Dur : 086 ms QT Int : 354 ms P-R-T Axes : 064 046 030 degrees QTc Int : 492 ms Sinus tachycardia Possible Left atrial enlargement Nonspecific ST abnormality Abnormal ECG When compared with ECG of 29-AUG-2010 19:18, Non-specific change in ST segment in Anterior leads Confirmed by Richard Martínez ([id number]) on 10/05/2020 10:48:40 AM Referred By: REFERRED SELF Confirmed By:Arnoldo Martínez
[2020-10-05 11:03] LABS: Hepatitis C IgG 13Yrs+Old_Rflx Neg (Neg)
--- NOTE | 2020-10-05 11:16 | Medical Student Progress Note ---
Date of Service October 05, 2020 Assessment & Plan (1) Altered mental status: Patient not alert. He gave nonverbal responses to questions. Did not know where he was, but was re-oriented. In ED, he was having delusions with belief that multiple microchip trackers have been implanted into his arm. Patient attempted to remove microchip. Has had hallucinations during prior EtOH withdrawal. No prior history of mental illness. Consider EtOH withdrawal as underlying cause. Mild hyponatremia, electrolytes otherwise WNL. TSH WNL. CT Head unremarkable. Psych consulted. -Frequent orientation -Treatment of EtOH withdrawal with IV lorazepam -Abnormal UA, UTI encephalopathy unlikely. Urine cultures negative. Discontinue ceftriaxone. -Ammonia levels are 35. Unlikely cause for encephalopathy. Repeat in AM. -Tox shows positive MDMA and THC. Zuleyma-D could give possible false positive for MDMA. -Psych believes that this is likely an EtOH withdrawal Altered mental status type: unspecified Qualified Code(s): R41.82 - Altered mental status, unspecified (2) Alcohol abuse: Patient has had several hospital visits for EtOH withdrawal. He has had confusion and hallucinations in the past in setting of EtOH withdrawal. He was evaluated by Psychiatry during a prior hospitalization in 2010. Addiction counseling offered and refused. He reports only drinking beer 2-3 times per week. Reports his last drink was appx 1 week ago. Although patient's EtOH level elevated today at 90 which makes this unlikely -Valium 5mg po x 1 -Banana bag -Thiamine 100mg po daily -Folate 1mg po daily -AWSS with IV Ativan per protocol. Continue to manage withdrawal symptoms with Ativan. Consider adding to phenobarbital if there are no improvements. (3) Urinary tract infection: Patient with positive UA. No urinary complaints. -Discontinue ceftriaxone. -Cultures negative. Hematuria presence: with hematuria Urinary tract infection type: site unspecified Qualified Code(s): N39.0 - Urinary tract infection, site not specified; R31.9 - Hematuria, unspecified (4) Liver dysfunction: Patient was evaluated by GI in 2010 for evaluation of elevated liver enzymes. ELOISA, AMA, ASMA, S-pep, TTG, IgA, ceruloplasmin (normal at 29), TSH (normal at 2.05), Ferritin (elevated at 929), TIBC (normal at 328), Monospot (Positive), CMV (+IgG) and hepatitis panel were sent. During that hospitalization he had elevation of AST and ALT as well as mild elevation of Tbili. Coag panel seemed to remain within normal range. Today patient with elevated AST, ALT as well as AP, Tbili and Dbili. INR mildly elevated at 1.5 as well as PT of 15. Thrombocytopenia and low albumin raise concern for synthetic dysfunction -Platelets (23), albumin (2.9), and ferritin (1273) -Liver US showed cirrhosis with patent hepatic flow. -Check Acetaminophen level (patient denies using), Ferritin, Acute hepatitis panel, Ammonia. -Acetaminophen level pending -Hepatitis panel pending (Hep Bs antigen and Hep C negative) -Ammonia normal (35) -Elevated ferritin (1273) -Repeat LFTS daily -Patient is still an active drinker (5) Elevated CK: Elevated CPK (2057), renal function intact -IVF - NSS at 100mL/hr x 1 liter -Unlikely rhabdomyolysis due to the lack of renal dysfunction. Present on Admission?: Yes (6) Wound of upper extremity: -Check daily. -Consider tdap. -Consider abx. Admission and Anticipated Discharge Date Admission Date: October 05, 2020 Supervising Attestation I personally examined the patient and verified all vidales points of history and exam, discussed case, and agree with decision making with B Mirlande ENRIQUEZ minimal HPI or ROS - with loud voice and gentle physical stim In general he awakens, it is hard to really gauge orientation, he mumbles, no distress HEENT normocephalic atraumatic mucous membranes are dry. Cardio is slightly tachycardic no rubs murmurs or gallops. Lungs are diminished but clear bilaterally no rales rhonchi or wheezes good effort. Abdomen is soft nondistended does not seem to have any tenderness, no guarding no rebound. Neuro shows him to be slightly tremulous but no focal neuro deficits. Altered mental status with delusions or paranoia or hallucinationsmost likely alcohol withdrawal/alcoholic hallucinosis, possibly also other drug abuse playing a role. Obviously will want to follow his mental status as he gets through withdrawal and comes down from substances, could have a baseline psych disorder as well. LAMONT S protocol, supportive care. Alcohol liver diseasefollow, everything appears pretty concerning as it relates to his liver, especially given his INR and his bilirubin, his platelets are concerning as well for liver induced hypersplenism, but there is no clear role for any acute indications at this time. otherwise as above Subjective Patient was asleep and difficult to arouse. When he awoke, he was somnolent and could only give nonverbal responses to questions. He did not know where he was, but an attempt was made to reorient. He moved his arms with ataxic movements. Will continue to assess as patient becomes more alert. Review of Systems Respiratory: + snoring Integumentary: + yellowing of the skin Neurologic: + abnormal movements and + confusion Physical Exam Constitutional: + altered mental status; not diaphoretic Neck: normal visual inspection Respiratory: Auscultation: lungs clear to auscultation bilaterally Cardiovascular: RRR, no murmur, no edema Musculoskeletal: Movements of the upper extremities were ataxic. Skin: no rashes, warm and dry + jaundice Neurologic: + confused and + obtunded Speech / Cognition: + abnormal speech Motor/Sensory: + abnormal movement Psychiatric: Orientation: + not alert and + not oriented x 3 Eye Contact: + poor eye contact Patient was obtunded, making a psychiatric exam difficult to obtain. Results & Data ([facility]) Vital Signs (Past 12 Hours) Vital Signs Temp Pulse Pulse Pulse Resp BP BP 10/05/20 08:00 94 H 10/05/20 07:10 37.2 C 10/05/20 06:21 94 H 16 130/81 10/05/20 05:21 100 H 18 137/84 10/05/20 04:21 112 H 20 140/76 10/05/20 03:25 36.8 C 108 H 17 160/93 H 10/05/20 03:21 36.8 C 108 H 20 160/93 H 10/05/20 03:00 103 H 18 10/05/20 02:16 36.8 C 104 H 20 145/90 H 10/05/20 00:28 105 H 18 105/87 10/04/20 22:53 112 H 18 136/89 Pulse Ox 10/05/20 08:00 10/05/20 07:10 10/05/20 06:21 96 10/05/20 05:21 94 10/05/20 04:21 98 10/05/20 03:25 96 10/05/20 03:21 96 10/05/20 03:00 97 10/05/20 02:16 97 10/05/20 00:28 97 10/04/20 22:53 98
--- NOTE | 2020-10-05 14:17 | Communication Note ---
Date of Service: October 05, 2020 Received request for psychiatric consultation by our hospitalist service, related to "hallucinations, paranoia, alcohol withdrawal." Chart was reviewed - patient is reportedly sedated and is having rather high scores on AWSS assessments (9, 13, 10, 7, and 9 since time of admission). According to ED case management note, patient had been demonstrating odd behavior and reporting visual hallucinations. Pt reportedly made cuts to his arm to remove tracking/identification devices that he believed were inserted. Pt does have a history of alcohol abuse, and previous records report episodes of hallucinations and bizarre behavior with alcohol withdrawal in the past. LFTs are elevated and BAL on admission was 90.0 - which conflicts with reports from the patient that his last drink was 1 week ago. Previous psychiatric consultation with our service suggests patient has no significant psychiatric history - and it is very unlikely for an individual to develop a formal thought disorder in their 50's. Visual hallucinations are also less likely in primary psychiatric conditions. Most likely contributing factors for AMS at this time are alcohol use /withdrawal, other substance abuse (tox screen also positive for MDMA and THC), UTI, encephalopathy, etc. Recommend initial effort be directed at treating alcohol withdrawal, UTI, and other medical concerns. Consider gabapentin taper for withdrawal concerns. Please reach out to our service with additional questions/updates - especially if symptoms of hallucinations or paranoia/delusions persist once medical insults have been treated.
[2020-10-06 06:33] LABS: INR 1.6 (0.9-1.1); Prothrombin Time 15.9 Seconds (9.0-12.0)
[2020-10-06 06:49] LABS: Albumin Level 2.4 gm/dl (3.4-5.0); BUN Creatinine Ratio 16.5 (10-20); Calcium 8.3 mg/dl (8.5-10.1); Creatinine Clr Calc Pharmacy 156.4 ml/min; Est GFR (African American) 138.9; Est GFR (Non-African American) 119.9; Hematocrit (blood only) 35.3 % (42-52); Hemoglobin 12.1 g/dL (14.0-18.0); Mean Corpuscular Hemoglobin 33.9 pg (25-34); Mean Corpuscular Hgb Conc 34.3 g/dL (32-36); Mean Corpuscular Volume 98.9 fL (80-100); Mean Platelet Volume 11.1 fL (7.4-10.4); Platelet Count 24 K/uL (130-400); Potassium 3.6 mmol/L (3.5-5.1); RDW Coefficient of Variation 13.2 % (11.5-14.5); RDW Standard Deviation 47.2 fL (36.4-46.3); Red Blood Count 3.57 M/uL (4.7-6.1); White Blood Count 2.64 K/uL (4.8-10.8)
[2020-10-06 06:50] LABS: Basophils # (auto) 0.02 K/uL (0-0.2); Basophils % (auto) 0.8 %; Eosinophils # (auto) 0.07 K/uL (0-0.5); Eosinophils % (auto) 2.7 %; Giant Platelets 1+; Lymphocytes # (auto) 0.89 K/uL (1.2-3.4); Lymphocytes % (auto) 33.7 %; Monocytes # (auto) 0.59 K/uL (0.11-0.59); Monocytes % (auto) 22.3 %; Neutrophils # (auto) 1.07 K/uL (1.4-6.5); Neutrophils % (auto) 40.5 %
[2020-10-06 06:52] LABS: Albumin Globulin Ratio 0.7 (0.9-2); Bilirubin,Total 4.6 mg/dl (0.2-1); Globulin 3.5 gm/dl (2.5-4.0); Total Protein 5.9 gm/dl (6.4-8.2)
[2020-10-06] MEDS: THIAMINE HCL 100 MG in SYRINGE 9 ML IV SCH (07:49)
[2020-10-06] MEDS: FOLIC ACID 1 MG in SYRINGE 9.8 ML IV SCH (07:51)
[2020-10-06 08:01] LABS: Hepatitis A Antibody IgM NON-REACTIVE (NON-REACTIVE); Hepatitis B Core Antibody IgM NON-REACTIVE (NON-REACTIVE)
--- NOTE | 2020-10-06 09:36 | Medical Student Progress Note ---
Date of Service October 06, 2020 Assessment & Plan (1) Altered mental status: Patient is alert and oriented x2 (failed year). In ED, he was having delusions with belief that multiple microchip trackers have been implanted into his arm. Patient attempted to remove microchip with utility knife. Has had hallucinations during prior EtOH withdrawal. No prior history of mental illness. Consider EtOH withdrawal as underlying cause. Electrolytes WNL. TSH WNL. CT Head unremarkable. Psych consulted. -Oriented to person and place. Still seems generally confused. -Discontinue IV lorazepam for possible EtOH withdrawal. Will monitor symptoms. -Abnormal UA, UTI encephalopathy unlikely. Urine cultures negative. Discontinue ceftriaxone. -Ammonia levels are up from 35 yesterday to 83 today. Possible cause for encephalopathy, but does not look like a hepatic encephalopathy. -Tox shows positive MDMA and THC. Patient denies any illicit drug use. Recent use of Zuleyma-D could give possible false positive for MDMA. -Psych believes that this is likely an EtOH withdrawal. -Will contact the pt's mother to determine his baseline and obtain a better history of his condition. Altered mental status type: unspecified Qualified Code(s): R41.82 - Altered mental status, unspecified (2) Alcohol abuse: Patient has had several hospital visits for EtOH withdrawal. He has had confusion and hallucinations in the past in setting of EtOH withdrawal. He was evaluated by Psychiatry during a prior hospitalization in 2010. Addiction counseling offered and refused. Today, he reports only drinking beer 1-2 beers per day when he gets home from work. Reports his last drink was appx 1 week ago. He says that he has not been drinking much the past 1-2 weeks due to worsening GERD. Patient's EtOH level elevated on admission at 90 which makes this unlikely. -Continue thiamine 100mg po daily -Continue Folate 1mg po daily -Discontinue IV ativan and AWSS protocol. (3) Urinary tract infection: Patient with positive UA. No urinary complaints. -Discontinue ceftriaxone. -Cultures negative. -Unlikely that this is the cause for encephalopathy. Hematuria presence: with hematuria Urinary tract infection type: site unspecified Qualified Code(s): N39.0 - Urinary tract infection, site not specified; R31.9 - Hematuria, unspecified (4) Liver dysfunction: Patient was evaluated by GI in 2010 for evaluation of elevated liver enzymes. ELOISA, AMA, ASMA, S-pep, TTG, IgA, ceruloplasmin (normal at 29), TSH (normal at 2.05), Ferritin (elevated at 929), TIBC (normal at 328), Monospot (Positive), CMV (+IgG) and hepatitis panel were sent. During that hospitalization he had elevation of AST and ALT as well as mild elevation of Tbili. Coag panel seemed to remain within normal range. Today patient with elevated AST, Tbili. ALT and AP are WNLi. INR mildly elevated at 1.6 as well as PT of 15.9. Thrombocytopenia and low albumin raise concern for synthetic dysfunction -Platelets (24), albumin (2.4), and ferritin (1273). -Liver US showed cirrhosis with patent hepatic flow. -Check Acetaminophen level (patient denies using), Ferritin, Acute hepatitis panel, Ammonia. -Acetaminophen level pending -Hepatitis panel negative -Ammonia elevated (83) -Elevated ferritin (1273) -Repeat LFTS daily -Patient is still an active drinker (5) Elevated CK: Elevated CPK (2057), renal function intact -IVF - NSS at 100mL/hr x 1 liter -Unlikely rhabdomyolysis due to the lack of renal dysfunction. (6) Wound of upper extremity: Wound is dressed but appears to continue to bleed on bandage. Appears to be more of an abrasion than a laceration. -Check daily. -No need for tdap or antibiotics at this time. Admission and Anticipated Discharge Date Admission Date: October 05, 2020 Supervising Attestation I personally examined the patient and verified all vidales points of history and exam, discussed case, and agree with decision making with Angelica ENRIQUEZ. Sitting up in chair, no acute complaints. Notes that he ate reasonably well. Also notes that he went home to do yard work earlier. Relates that he drinks maybe 2 beers at a timesomething like [place]rell[place] or Aayush Melissa. Was able to reach his fatherhe denies any background prior hallucinations or delusions. Notes that the current round of bizarre behavior only started about a week and a half ago, may be 3 weeks ago if you account for a few weeks of having a difficult time sleeping. He notes that his son has had a long struggle with alcohol, and while he has not seen much as far as empty bottles around the house lately, he does note that his son has been [place] 5 [place] a week, and strongly suspects that he is drinking there. Vitals noted, in general he is awake and alert seems fairly disoriented but is in no distress. HEENT normocephalic atraumatic mucous membranes are moist. Breathing unlabored no accessory muscle use good effort. Neuro shows no focal deficits, minimal tremor. Left shoulder wound (where he tried to dig out the microchips) was fortunately not a very big or deep wound, seem to be more superficial than I initially suspected, was oozing blood somewhat. no surround ing erythema. 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 Continue supportive care. Given that he is no longer showing significant withdrawal, stop benzodiazepine/symptom triggered management, so as to not cloud his mental status. Continue thiamine and folate. Continue supportive care. Cirrhosis/thrombocytopenia and leukopenia indicative of hypersplenism. No indications for transfer or steroids at this time, continue to follow, definitely needs alcohol cessation. DVT prophylaxispharmacologic contraindicated due to his thrombocytopenia Subjective Patient was awake and sitting up in bed after eating breakfast. He was alert and was able to answer questions. He believes that he is here for his worsening GERD and to have a procedure to have microchips removed from his arm. He says that since his GERD has been worse over the past 2 weeks, he has not had much to drin k (1-2 beers per night). When asked about prior EtOH withdrawal, he said this does not feel like that withdrawal. He denies recent illicit drug use. He has needed to take his Zuleyma-D recently (possible source for positive MDMA?). He does not feel that anybody is trying to hurt him or harm him here at the hospital. He has been concerned that he has been losing weight recently. He appears restless and jittery. Review of Systems Constitutional: + weight loss; no fever and no body aches Respiratory: no dyspnea and no wheezing Cardiovascular: no chest pain and no dyspnea Gastrointestinal: + heartburn; no nausea and no vomiting Integumentary: + wounds; no rash Wound in the left shoulder. Neurologic: + restless legs; no tremor(s) Psychiatric: + anxiety, + confusion and + paranoia; no depression, no change in appetite, no suicidal ideation, no homicidal ideation, no hallucinations, no auditory hallucinations and no visual hallucinations Physical Exam Constitutional: + thin; not diaphoretic Neck: normal visual inspection Respiratory: normal respiratory effort, lungs clear to auscultation Cardiovascular: RRR, no murmur, no edema Gastrointestinal (Abdomen): Inspection/Auscultation: abdomen normal to inspection Percussion/Palpation: abdomen nontender and no guarding Skin: no rashes, warm and dry + wound Neurologic: moves all extremities and awake Motor/Sensory: no tremor Psychiatric: Orientation: alert, oriented to person and oriented to place; + not oriented to time Eye Contact: good eye contact Mood: + anxious mood Thought Content: + paranoid and + delusions Suicidal Thoughts: + reports suicidal thoughts Homicidal Thoughts: + reports homicidal thoughts Hallucinations: no auditory hallucinations and no visual hallucinations Insight: + impaired insight Results & Data ([facility]) Vital Signs (Past 12 Hours) Vital Signs Temp Pulse Pulse Resp BP BP Pulse Ox 10/06/20 08:00 86 10/06/20 07:00 36.7 C 86 18 115/69 98 10/06/20 05:12 36.5 C 90 20 120/66 98 10/05/20 23:12 91 H 10/05/20 22:51 36.8 C 94 H 18 113/71 98 10/05/20 22:02 99
--- NOTE | 2020-10-06 18:37 | Billing Data ---
Date of Service October 06, 2020 Coding Level of Care Code 14926 Subseq Hosp Care Lvl 3
--- NOTE | 2020-10-06 18:38 | Billing Data ---
Date of Service October 06, 2020 Coding Level of Care Code 46445 Subseq Hosp Care Lvl 3
[2020-10-06] MEDS ORDERED: cefTRIAXone SODIUM 1,000 MG in DEXTROSE 5% 50 ML IV SCH (22:00)
[2020-10-07 08:20] LABS: INR 1.7 (0.9-1.1); Prothrombin Time 16.3 Seconds (9.0-12.0)
[2020-10-07 08:37] LABS: Hematocrit (blood only) 35.1 % (42-52); Hemoglobin 12.4 g/dL (14.0-18.0); Mean Corpuscular Hemoglobin 34.6 pg (25-34); Mean Corpuscular Hgb Conc 35.3 g/dL (32-36); Mean Platelet Volume 10.7 fL (7.4-10.4); Platelet Count 27 K/uL (130-400); RDW Coefficient of Variation 13.3 % (11.5-14.5); RDW Standard Deviation 47.9 fL (36.4-46.3); Red Blood Count 3.58 M/uL (4.7-6.1); White Blood Count 2.95 K/uL (4.8-10.8)
[2020-10-07 08:42] LABS: Albumin Level 2.4 gm/dl (3.4-5.0); BUN Creatinine Ratio 14.6 (10-20); Calcium 8.5 mg/dl (8.5-10.1); Creatinine Clr Calc Pharmacy 164.4 ml/min; Est GFR (African American) 142.2; Est GFR (Non-African American) 122.7; Potassium 3.8 mmol/L (3.5-5.1)
[2020-10-07 08:47] LABS: Albumin Globulin Ratio 0.7 (0.9-2); Bilirubin,Total 3.8 mg/dl (0.2-1); Globulin 3.5 gm/dl (2.5-4.0); Total Protein 5.9 gm/dl (6.4-8.2)
[2020-10-07 08:53] LABS: Basophils # (auto) 0.02 K/uL (0-0.2); Basophils % (auto) 0.7 %; Eosinophils # (auto) 0.11 K/uL (0-0.5); Eosinophils % (auto) 3.7 %; Giant Platelets 1+; Immature Granulocytes # (auto) 0.01 K/uL (0.00-0.02); Immature Granulocytes % (auto) 0.3 %; Lymphocytes # (auto) 1.27 K/uL (1.2-3.4); Lymphocytes % (auto) 43.1 %; Monocytes # (auto) 0.67 K/uL (0.11-0.59); Monocytes % (auto) 22.7 %; Neutrophils # (auto) 0.87 K/uL (1.4-6.5); Neutrophils % (auto) 29.5 %
[2020-10-07] MEDS: FOLIC ACID 1 MG in SYRINGE 9.8 ML IV SCH (10:19)
[2020-10-07] MEDS: THIAMINE HCL 100 MG in SYRINGE 9 ML IV SCH (10:19)
[2020-10-07] MEDS ORDERED: PHYTONADIONE 5 MG TAB PO STA (13:04)
--- NOTE | 2020-10-07 13:10 | Hospitalist Progress Note ---
Date of Service October 07, 2020 Assessment & Plan (1) Alcohol-induced hallucinations: 55-year-old male with past medical history of chronic alcohol use presents with concerns of mental health issues including paranoia and sleeping difficulties. Altered mental status Improving. No prior history of mental illness. Spoke with patient's father who denies any background of prior hallucinations or delusions. 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 Doubt acute hepatic encephalopathy. Electrolytes WNL. TSH WNL. CT Head unremarkable. Tox shows positive MDMA and THC Alcohol abuse Spoke with patient's father who reports that patient drinks maybe 2 beers at a time. However, son has been working south of here 5 days a week, and strongly suspects that he is drinking there Have stopped AWSS protocol at this point. Patient not showing any significant withdrawal symptoms. Continue supportive care Continue p.o. thiamine/folic acid Transaminitis improving, downtrending. Continue to trend daily Continue alcohol cessation counseling. He was evaluated by Psychiatry during a prior hospitalization in 2010. Addiction counseling offered and refused. Pancytopenia Likely secondary to chronic alcohol use as above Continue to trend daily. No indication for acute intervention at present Thrombocytopenia and leukopenia indicative of hypersplenism. Thrombocytopenia and low albumin raise concern for synthetic dysfunction. We will give p.o. vitamin K 5 mg today to see if can help synthetic function FEN/GI: Regular diet DVT prophylaxis: Pharmacologic contraindicated secondary to thrombocytopenia CODE STATUS: Full code Dispo: Downgrade to [facility] Admission and Anticipated Discharge Date Admission Date: October 05, 2020 Supervising Physician Co-Signing Physician Notes I personally examined the patient and verified all vidales points of history and exam, discussed case, and agree with decision making with Dr Ziegler Resting comfortably. No new issues noted. Discussed with mother. 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 Vitals noted, resting comfortably no distress. Breathing unlabored no accessory muscle use good effort. Skin shows no rashes no pallor or icterus. 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 His incongruent stories from what he told Dr. 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 No ind ications for transfer or steroids at this time (discriminant function 7), give vitamin K to see if he has enough synthetic function to correct INR any, continue to follow, definitely needs alcohol cessation. DVT prophylaxispharmacologic contraindicated due to his thrombocytopenia Subjective Patient seen at bedside today. No acute overnight events reported. Patient no concerns or complaints at this time. Tolerating p.o. intake. No nausea or vomiting. Line of thinking seems to be more clear today as patient able to tell me about specifics of his job and geography. Review of Systems Review of Systems: All systems reviewed & are unremarkable except as noted in HPI & below Physical Exam Constitutional: + thin Eyes: PERRL, conjunctivae normal, anicteric sclerae ENMT: external ear and nose normal, oropharynx normal Respiratory: normal respiratory effort, lungs clear to auscultation Cardiovascular: RRR, no murmur, no edema Gastrointestinal (Abdomen): normal bowel sounds, soft, nontender, no hepatosplenomegaly Skin: no rashes, warm and dry + wound (Superficial abrasion over left deltoid) Neurologic: CN's II-XI intact bilaterally; no focal motor deficits Motor/Sensory: + tremor (Mild) Psychiatric: A+Ox3, euthymic affect Results & Data Results & Data ([facility]) Vital Signs (Past 12 Hours) Vital Signs Temp Pulse Pulse Pulse Resp BP BP 10/07/20 11:08 36.4 C L 87 16 123/76 10/07/20 08:00 83 10/07/20 07:51 36.5 C 88 20 131/81 Pulse Ox 10/07/20 11:08 95 10/07/20 08:00 10/07/20 07:51 99 Laboratory Results Laboratory Results - last 24 hr 10/07/20 10/07/20 10/07/20 07:43 07:43 07:43 WBC 2.95 L RBC 3.58 L Hgb 12.4 L Hct 35.1 L MCV 98.0 MCH 34.6 H MCHC 35.3 RDW Std Deviation 47.9 H RDW Coeff of Kevin 13.3 Plt Count 27 L* MPV 10.7 H Immature Gran % (Auto) 0.3 Neut % (Auto) 29.5 Lymph % (Auto) 43.1 [place] % (Auto) 22.7 Eos % (Auto) 3.7 Baso % (Auto) 0.7 Neut # (Auto) 0.87 L* Lymph # (Auto) 1.27 [place] # (Auto) 0.67 H Eos # (Auto) 0.11 Baso # (Auto) 0.02 Immature Gran # (Auto) 0.01 Giant Platelets 1+ PT 16.3 H INR 1.7 H Sodium 135 L Potassium 3.8 Chloride 106 Carbon Dioxide 25 Anion Gap 4.0 BUN 8 Creatinine 0.51 L Est Cr Clr Drug Dosing 164.4 Est GFR ( Amer) 142.2 Est GFR (Non-Af Amer) 122.7 BUN/Creatinine Ratio 14.6 Glucose 99 Calcium 8.5 Total Bilirubin 3.8 H AST 132 H ALT 66 Alkaline Phosphatase 111 Total Protein 5.9 L Albumin 2.4 L Globulin 3.5 Albumin/Globulin Ratio 0.7 L Medications Administered Current Inpatient Medications Folic Acid (Folic Acid 1 Mg Tab) 1 mg PO QAM [facility] Stop: 11/07/20 08:59 Phytonadione (Phytonadione 5 Mg Tab) 5 mg PO NOW STA Stop: 10/07/20 13:05 Thiamine HCl (Thiamine Hcl 100 Mg Tab) 100 [facility] Stop: 11/07/20 08:59 Resident Activity Tracking Resident Involvement: Resident Care Provided Care Provided: Adult Hospital Medicine
--- NOTE | 2020-10-07 15:18 | Billing Data ---
Date of Service October 07, 2020 Coding Level of Care Code 93973 Subseq Hosp Care Lvl 3
[2020-10-07] MEDS ORDERED: THIAMINE HCL 500 MG in SODIUM CHLORIDE 0.9% 50 ML IV ONE (15:30)
[2020-10-08 06:44] LABS: Albumin Level 2.6 gm/dl (3.4-5.0); Calcium 8.9 mg/dl (8.5-10.1); Creatinine Clr Calc Pharmacy 137.5 ml/min; Est GFR (African American) 132.1
[2020-10-08 06:47] LABS: Albumin Globulin Ratio 0.6 (0.9-2); Bilirubin,Total 3.8 mg/dl (0.2-1); Globulin 4.1 gm/dl (2.5-4.0); Total Protein 6.7 gm/dl (6.4-8.2)
[2020-10-08 06:57] LABS: Basophils # (auto) 0.05 K/uL (0-0.2); Basophils % (auto) 1.3 %; Eosinophils % (auto) 2.6 %; Hematocrit (blood only) 36.6 % (42-52); Hemoglobin 12.8 g/dL (14.0-18.0); Lymphocytes # (auto) 1.72 K/uL (1.2-3.4); Mean Corpuscular Hemoglobin 34.6 pg (25-34); Mean Corpuscular Volume 98.9 fL (80-100); Mean Platelet Volume 12.2 fL (7.4-10.4); Monocytes # (auto) 0.67 K/uL (0.11-0.59); Monocytes % (auto) 17.5 %; Neutrophils # (auto) 1.28 K/uL (1.4-6.5); Neutrophils % (auto) 33.6 %; Platelet Count 39 K/uL (130-400); RDW Coefficient of Variation 13.6 % (11.5-14.5); RDW Standard Deviation 48.8 fL (36.4-46.3); White Blood Count 3.82 K/uL (4.8-10.8)
[2020-10-08 08:09] LABS: INR 1.6 (0.9-1.1); Prothrombin Time 16.1 Seconds (9.0-12.0)
[2020-10-08] MEDS ORDERED: FOLIC ACID 1 MG TAB PO SCH (09:00)
[2020-10-08] MEDS ORDERED: THIAMINE HCL 500 MG in SYRINGE 9 ML IV SCH (09:00)
[2020-10-08] MEDS ORDERED: THIAMINE HCL 100 MG TAB PO SCH (09:00)
[2020-10-08] MEDS ORDERED: THIAMINE HCL 500 MG in 0.9 % SODIUM CHLORIDE 100 ML IV SCH (09:00)
--- NOTE | 2020-10-08 12:09 | Discharge Summary ---
Date of Service October 08, 2020 Admission HPI Per Admitting Provider Guy Amin is a 55yo male with history of chronic EtOH use presenting with concern for mental health issues. Patient presented to the ER with his mother. He is unable to fully recount the events preceding arrival. History obtained through discussion with ER staff as well as chart review. Patient has had problems with paranoia and sleeping recently. He thinks that he has several microchip trackers that have been implanted in his left arm. Today he used a stainless steel utility knife to extract one of the trackers from his arm. He denies previous history of mental illness. He is not on any medication for mental illness. Patient complains only of increased heartburn symptoms. He denies chest pain, SOB, palpitations, abdominal pain, nausea, vomiting, diarrhea or constipation. He denies edema, bloating, dark urine, cecily colored stools or yellowing of the skin or eyes. He does admit to easy bruising over the past month. Otherwise no complaints. In the ER patient afebrile, tachycardic and mildly hypertensive. Patient reports that he has been cutting back on his drinking over the past several months. States he drinks several beers 3 times weekly. Last drink reportedly one week ago. He has had withdrawal symptoms in the past including hallucinations. He admits to smoking marijuana occasionally but otherwise denies substance use. ER Course: Ceftriaxone 1gm, NSS x 1L at 80mL/hr, Thiamine 100mg IV Principal Diagnosis Metabolic Encephalopathy and Hallucinations likely 2nd to Alcohol abuse +/- Hepatic Encephalopathy Discharge Exam Constitutional + thin Eyes PERRL, conjunctivae normal, anicteric sclerae ENMT external ear and nose normal, oropharynx normal Respiratory normal respiratory effort, lungs clear to auscultation Cardiovascular RRR, no murmur, no edema Gastrointestinal (Abdomen) normal bowel sounds, soft, nontender, no hepatosplenomegaly Skin no rashes, warm and dry + wound (Superficial abrasion over left deltoid) Neurologic CN's II-XI intact bilaterally; no focal motor deficits Motor/Sensory: no tremor (no asterixis ) Psychiatric A+Ox3, euthymic affect Discharge Data Allergies Allergy/AdvReac Type Severity Reaction Status Date / Time No Known Allergies Allergy Verified 10/04/20 21:45 Consultations 10/05/20 00:32 ED Decision to Admit Stat Ordered Studies 10/04/20 23:07 CT head/brain wo con Urgent 10/05/20 03:24 US duplex portal hepatic veins Routine US liver Routine Hospital Course (1) Alcohol abuse: (2) Alcohol-induced hallucinations: 55-year-old male with past medical history of chronic alcohol use presents with concerns of mental health issues including paranoia and sleeping difficulties. This was all due to be 2/2 alcoholism. The following was the medical management during stay here: Altered mental status Improved. No prior history of mental illness. Spoke with patient's father who denies any background of prior hallucinations or delusions. 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 Perhaps an aspect of acute hepatic encephalopathy-- Ammonia high of 83. Electrolytes WNL. TSH WNL. CT Head unremarkable. Tox shows positive MDMA and THC Alcohol abuse Spoke with patient's father who reports that patient drinks maybe 2 beers at a time. However, [place] 5 [place] a [place], and strongly suspects that he is drinking there Was initially on AWSS protocol, but was later stopped due to low scores. Chinyere ent not showing any significant withdrawal symptoms. Continued supportive care Continue p.o. thiamine/folic acid. On discharge, pt to continue a PO multivitamin, thiamine (100 mg daily) and folic acid (1 mg daily) Transaminitis improving, downtrending. Please repeat CMP in 1-2 days Continue alcohol cessation counseling. He was evaluated by Psychiatry during a prior hospitalization in 2010. Addiction counseling offered and refused. Pt notes he has sheet of numbers/places in town for assistance -We will set pt up with outpt GI for follow up and likely EGD moving forward Pancytopenia Likely secondary to chronic alcohol use as above No indication for acute intervention at present. Discriminant score 7-- no steroids indicated Thrombocytopenia and leukopenia indicative of hypersplenism. Thrombocytopenia and low albumin raise concern for synthetic dysfunction. We trialed p.o. vitamin K 5 mg with no significant improvement in INR indicating poor synthetic function likely 2/2 cirrhosis . -Will repeat CBC, PT/INR in 1-2 days DVT prophylaxis: Pharmacologic contraindicated secondary to thrombocytopenia. At time of discharge, pt with no other acute concerns or complaints. We will set up a PCP appt for pt for 1-2 days after discharge. Total Time Total Time Spent Total Time Spent (In Minutes): 30 Discharge Plan Discharge Items Patient Disposition: Home - Self-Care Reason For Visit: ETOH WITHDRAWAL,ABNORMAL LIVER STUDIES Discharge Diagnosis: alcohol hallucinosis Condition on Discharge: Good Activity: Per Instructions section Non-emergency contact: Primary Care Provider Call non-emergency contact if: you have any medication questions and your symptoms worsen Follow-up/Referrals: Patrick Choudhury [Physician] - Arnold Tuttle [Physician] - 10/18/20 7:40 am ([facility] office.Office visit will be with ) Darryn Ziegler DO [Resident] - 10/12/20 1:30 pm Diet: Regular Ambulatory Orders: Complete Blood Count with Diff (Routine) Timeframe: 2 Days Location: Determined by Patient Ordered By: Darryn Ziegler Comprehensive Metabolic Panel (Routine) Timeframe: 2 Days Location: Determined by Patient Ordered By: Darryn Ziegler Prothrombin Time INR (Routine) Timeframe: 2 Days Location: Determined by Patient Ordered By: Darryn Ziegler Addtl Attending Provider Instructions: You were admitted with concerns of hallucinations and paranoia and sleeping difficulties. This was all likely due to your chronic alcohol use. Please follow the below instructions on discharge: -The most important thing you can do is to quit alcohol use. Please use the local community resources list that you have if you need any assistance with this -You will be taking some new vitamin tablets that were sent to your [email or web address] pharmacy. This includes : thiamine (100 mg daily) and folic acid (1 mg daily) along with a multivitamin. Refills will be given to you by your PCP -Please refrain from any tylenol use given your liver pathology -We will set up a PCP/Family doctor appt for you for 1-2 days and also have follow up with a GI doctor for you moving forward as well. Be on the lookout for phone calls for specific times and dates for both of these follow ups -You will get blood work prior to these appt dates. The script for these have been given to you -we recommend you sign up to get the covid shot as well as you are considered a vulnerable population Pending Studies at Discharge: No Stand-Alone Forms: My [employer], Smoking Cessation Medications and DC Order Prescriptions: New thiamine HCl (vitamin B1) 100 mg tablet 100 mg PO DAILY Qty: 30 RF: 0 folic acid 1 mg tablet 1 mg PO DAILY Qty: 30 RF: 0 Continued fexofenadine-pseudoephedrine [Zuleyma-D 12 Hour] 60-120 mg Tablet Extended Release 12 Hr See Rx Instructions .ROUTE .COMPLEX PRN (Reason: Allergy Symptoms) RF: 0 esomeprazole magnesium [Nexium] 20 mg Capsule,Delayed Release(Dr/Ec) 20 mg PO DAILY PRN (Reason: Abdominal Discomfort) RF: 0 Discharge Orders: Discharge Order (Routine); Ordered 10/08/20 Ordered By: Darryn Mares/Other Patient Handouts: Understanding the Disease of Addiction, Understanding Alcoholism Admission Data Admit Date/Time: 10/05/20 01:56 Attending Provider: Levon López Admit Provider: Amy Roth Primary Care Provider: PCP,NO Other Providers: Amy Roth Other Interventions: Discharge Summary Assessment (RN) Last Done: 10/08/20 12:43 Supervising Physician Co-Signing Physician Notes Attending Attestation & Discharge Note: Pt seen/examined, chart reviewed, discharge care plan d/w resident Dr Samy Ziegler. I agree w/ the vidales components of his discharge documentation and instructions. 55yo male with history of alcoholism presented with significant hallucinations in the setting of ongoing alcohol abuse. Imaging and labs all consistent with alcoholic cirrhosis. Also with pancytopenia likely due to cirrhosis as well as bone marrow suppression from alcohol use. Ammonia levels were mild-moderately elevated as well. He was given supportive care during his stay. His confusion and hallucinations resolved without any significant intervention. He had no specific treatment for the elevated ammonia levels either. On day of discharge he was awake, alert, oriented x 3, and had no hallucinations. He was offered resources for his alcoholism - declined, stating he had them from a prior hospital stay. He would not commit to any specific outpatient Rx for his alcoholism. He was counseled that he indeed has permanent damage to his liver given the cirrhosis. Counseled that he is at risk of decompensated cirrhosis in the future. Further, he was counseled about his severe pancytopenia and low platelets. exam: gen - NAD, no signs of withdrawal or intoxication eyes - no nystagmus mouth - MMM heart - RRR, s1 s2 lungs - CTA b/l abd - soft, liver edge not palpable; spleen palpable; no significant ascites; NT ext - no edema neuro - no asterixis psych - a/o x 3; no psychosis A/P: 1. alcoholism - ongoing; no commitment from patient to quit 2. metabolic encephalopathy - resolved 3. hallucinations - alcohol-related - resolved; does not appear to have primary psychotic disorder given resolution of hallucinations with supportive care alone 4. can't exclude Wernicke's encephalopathy 5. cirrhosis 6. elevated ammonia levels 7. pancytopenia 2nd to #5 and #1 8. superimposed alcoholic hepatitis in setting of #5 9. rhabdomyolysis has f/u with Dr Ziegler and [facility] following discharge within 1-2 weeks Moiz Roca MD Resident Activity Tracking Resident Involvement: Resident Care Provided Care Provided: Adult Hospital Medicine
[2020-10-08 12:22] LABS: MDA negative; MDEA negative; MDMA (Ecstasy) Urine, Confirm negative; Marijuana Quant, GCMS Urine 2450 ng/mL (<5)
--- NOTE | 2020-10-15 12:10 | Billing Data ---
Date of Service October 08, 2020 Coding Level of Care Code D/C Day Management >30 mins
== END 2020-10-08 13:24 | disposition home or self-care (01) | DRG 896 ==
LOC: ED 21:23 → SUATTDRO 10-05 01:56 → 1E 10-05 01:56 → 2S 10-05 19:16 → 3N 10-07 10:53